=== PATIENT | female | born 1985 | race Caucasian/White ===

== ENCOUNTER 2016-07-27 14:41 | Inpatient (IN) | payer BC ==
[~2016-07-27] VITALS: Ht 160 cm; Wt 65.5 kg
[~2016-07-27 14:41] MED LIST: IBU-6600 MG PO; PERCOCET 325 MG1 TA2 PO; PRENATAL1 TA1 PO
[2016-10-05] VITALS (30 sets, daily range): BP systolic 91–135; BP diastolic 52–76; PULSE 56–87; TEMP 97.6–98.2
[2016-10-05 07:47] LABS: BASO % 0.3 % (0.0-2.0); EOS % 0.5 % (0-4.0); GRAN # 4.3 (1.4-6.5); GRAN % 66.4 % (42.2-75.2); HEMOGLOBIN 12.1 g/dl (12.5-16.0); LYMPH # 1.6 (1.2-3.4); LYMPH % 25.5 % (20.0-51.0); MEAN CELL VOLUME 95 fl (80.0-100.0); MEAN CORPUSCULAR HEMOGLOBIN 32 pg (27.0-31.0); MEAN CORPUSCULAR HGB CONC 34 g/dl (33.0-37.0); MEAN PLATELET VOLUME 12.2 fl (7.4-10.4); MONO # 0.5 (0.1-0.6); PLATELET COUNT 173 K/mm3 (130-400); RED BLOOD COUNT 3.73 M/mm3 (4.10-5.30); REDCELL DISTRIBUTION WIDTH-CV 12.6 % (11.5-14.5); WHITE BLOOD COUNT 6.4 K/mm3 (4.8-10.8)
[2016-10-05 08:01] LABS: HEMATOCRIT 35.3 % (37.0-47.0)
[2016-10-05] MEDS ORDERED: IBU600 MG PO (12:49)
[2016-10-05] MEDS ORDERED: PERCOCET 325 MG1 TA2 PO (12:50)
[2016-10-06 07:38] VITALS: BP 120/66; PULSE 61; TEMP 97.4
== END 2016-10-06 14:50 | disposition home or self-care (01) | DRG 775 ==
LOC: EDSTATUS 10-01 07:03 → LDRO 10-01 14:41 → LDR 10-05 06:56 → OB 10-05 15:39
PROVIDERS: Obstetrics & Gynecology
PROC: 10E0XZZ Delivery of Products of Conception, External Approach (ICD-10-PCS; principal; 2016-10-05)
PROC: 3E033VJ Introduction of Other Hormone into Peripheral Vein, Percutaneous Approach (ICD-10-PCS; 2016-10-05)
DX: O48.0 Post-term pregnancy (principal); Z3A.40 40 weeks gestation of pregnancy; Z37.0 Single live birth
CPT/HCPCS: J2590; J7120